=== PATIENT | female | born 1960 | race Caucasian/White ===

== ENCOUNTER 2022-01-25 10:28 | Day surgery (SDC) | payer BC ==
[2022-01-25] MEDS ORDERED: Lactated Ringers 1,000 ML IV ONE (10:49)
[2022-01-25] MEDS ORDERED: Pepcid 20 MG VIAL IV ONE ×2 (10:49→11:04)
[2022-01-25] MEDS ORDERED: KEFZOL 1 GM/50 ML PREMIX** 1 GM/50 ML IVPB IV ONE (10:49)
[2022-01-25] MEDS ORDERED: Versed 2 MG/2 ML Injection IV ONE (10:49)
[2022-01-25] MEDS ORDERED: CEFAZOLIN 2 GM-D5W BAG** 2 GM/50 ML ML IV ONE (10:50)
[2022-01-25] MEDS ORDERED: Reglan 10 MG/2 ML IV ONE (10:50)
[2022-01-25] MEDS ORDERED: Lactated Ringers 1,000 ML IV SCH (11:00)
[2022-01-25] MEDS ORDERED: CEFAZOLIN 2 GM-D5W BAG** 2 GM/50 ML ML IV SCH (11:00)
[2022-01-25] MEDS ORDERED: Reglan 10 MG/2 ML ONE (11:04)
[2022-01-25] MEDS ORDERED: Versed 2 MG/2 ML Injection ONE ×2 (11:04→13:06)
[2022-01-25] MEDS ORDERED: Marcaine Mpf 0.5% Vial 30 Ml ONE (12:30)
[2022-01-25] MEDS ORDERED: DIPRIVAN 200 MG/20 ML IV ONE (13:06)
[2022-01-25] MEDS ORDERED: Zemuron 100 MG/10 ML ONE (13:06)
[2022-01-25] MEDS ORDERED: SUBLIMAZE 250 MCG/5 ML ONE (13:06)
[2022-01-25] MEDS ORDERED: XYLOCAINE 1% HCL 20 ML MDV ONE (13:11)
[2022-01-25] MEDS ORDERED: BRIDION 200MG/2ML IV ONE (14:18)
--- NOTE | 2022-01-25 14:41 | XRAY ---
Indication: Right foot 1st MTP arthrodesis. Intraoperative fluoroscopy provided for 1 minute 18 seconds. 10 digital spot images submitted for interpretation ultimately demonstrates 1st MTP fusion with intact fixation plate/screws. Correlate with intraoperative findings/report.
--- NOTE | 2022-01-25 15:40 | OP ---
SURGERY DATE/TIME: 01/25/2022 1315 PREOPERATIVE DIAGNOSES: 1) Right foot pain. 2) Hallux abductovalgus right foot. 3) Osteoarthritis first metatarsophalangeal joint right foot. POSTOPERATIVE DIAGNOSES: 1) Right foot pain. 2) Hallux abductovalgus right foot. 3) Osteoarthritis first metatarsophalangeal joint right foot. PROCEDURE: First metatarsophalangeal joint arthrodesis. SURGEON: Yomi Lambert DPM. LINOLEUM TILE LAYER: None. ANESTHESIA: General plus a postoperative local block. See injectables for details. HEMOSTASIS: Ankle tourniquet set to 250 mm of Mercury for approximately 37 total tourniquet minutes. MATERIALS: 4-0 Monocryl, 3-0 Nylon. A 3.4 x 30 MM VPC Ivana screw as well as A.L.P.S. 0-degree metatarsophalangeal joint plate. INJECTABLES: 20 cc total of a 1:1 mixture of 1% lidocaine plain and 0.5% bupivacaine plain injected in a Mcnally block-type fashion. INDICATION FOR SURGERY: Julissa is a very pleasant 61-year-old female who was seen for complaints of pain to the bilateral lower extremity. The patient indicated that she had significant amount of pain with ambulation and shoe gear. She had made modifications to her shoe gear, selected the best athletic shoes on the market and performed physical therapy and stretching exercises to no avail. At this time the patient has tried everything from the conservative modality to alleviate the pain that she has been experiencing. At this time she wishes to proceed with surgical intervention. The patient understands the risks, benefits and complications of surgical intervention including but not limited to infection, hematoma, seroma, possibility of delayed skin healing, nonskin healing, possibility of nonbone healing and possibility of delayed bone healing, possibility of failure of hardware and need for further surgical intervention at a later date has been discussed. The patient understands all of these risks and wishes to proceed. The patient understands that there are no guarantees provided as to the outcome of the surgical intervention. Plenty of time was allowed for the patient to ask questions. At this time the patient would like to proceed with her right foot and in six weeks' time proceed with her left foot secondary to the pain that she has been experiencing to bilateral lower extremities. The patient has been instructed that so long as there are no complications we may proceed with this plan. It is with that we decided to proceed. DESCRIPTION OF PROCEDURE AND FINDINGS: The patient was brought into the OR and placed on the OR table in the supine position. At this time general anesthesia was administered until the patient was sedated. A well-padded ankle tourniquet was applied to the patient's right ankle. At this time the right lower extremity was prepped and draped in the typical sterile fashion. At this time attention was directed to the dorsal aspect of the first metatarsophalangeal joint where there was significant metatarsophalangeal joint hallux abductovalgus. At this time a linear incision was made just medial to the extensor hallucis longus tendon. This incision was deepened along the fascial plane with a combination of blunt and sharp dissection. At this time the extensor hallucis tendon was resected out of the surgical site and cleared from its soft tissue attachments until it could be gently retracted to lateral part of the incision. At this time the dorsal capsule of the metatarsophalangeal joint was dissected in a linear-type fashion elevating it from the bone. At this time the joint was disarticulated utilizing McGlamry. In the process the metatarsal head was examined and an osteochondral defect was identified that was approximately 4 mm in depth at the plantar medial aspect of the joint. The remaining joint was arthritic primarily dorsally which explains the patient's crepitation with range of motion on clinical examination. At this time a sagittal saw was utilized to remove the new eminence off of the medial aspect of the metatarsal. A K-wire was retrograded down the center of the first metatarsal head. At this time a conical reamer was utilized to remove the cartilage from the metatarsal head and then a conical reamer was then utilized to remove the cartilage from the base of the proximal phalanx. Copious amounts of sterile saline were utilized to flush the site. Joint prep was carried out utilizing a 2.0 mm drill, curettes and rongeur. Following this a K-wire was introduced from a distal medial to a proximal lateral orientation in order to secure the joint. A neutral A.L.P.S. 0-degree plate was then introduced into the surgical site and deemed to be of adequate position and quality. At this time a combination of locking and nonlocking screws were utilized to secure the plate distally and eccentric screw was engaged into the plate with minimal compression and then an interfragmentary screw measuring 3.4 x 30 mm was introduced from a distal medial to proximal lateral orientation. Following this, the eccentric screw and the interfragmentary screw were alternated to get compression through the joint. The remainder of the proximal first metatarsophalangeal screws were introduced utilizing a combination of locking screws. Following this, copious amounts of sterile saline were utilized to flush the surgical site. The extensor hallucis longus tendon and the capsule were repaired enclosing the plate. 4-0 Monocryl was then utilized to coapt the subcutaneous skin edges in a running interlocking stitch through the capsular layer and simple buried in the subcutaneous layer. Following this 3-0 Nylon was utilized to coapt the skin edges in a horizontal mattress-type fashion. An injection consisting of 20 cc total of a 1:1 mixture of 1% lidocaine plain and 0.5% bupivacaine plain injected in a Mcnally block-type fashion to the first metatarsophalangeal joint of the right foot. Following this, sterile saline soaked lap utilized to cleanse the surgical site this was then dried and the dressing consisting of Betadine, Adaptic, 4x4, Kerlix and TOMMY was applied to the patient's right foot. The patient was then reversed from anesthesia and returned to the postoperative anesthesia care unit with vital signs stable and vascular status intact. The patient handled the procedure as well as the anesthesia without significant complication. Postoperative orders as indicated in the patient's discharge chart.
[2022-01-25 15:59] VITALS: BP 139/88; PULSE 75; O2SAT 98
--- NOTE | 2022-01-25 16:23 | XRAY ---
One minute and 18 seconds of fluoroscopy was used in surgery for a right first metatarsal joint arthrodesis.
== END 2022-01-25 16:07 | disposition home or self-care (01) ==
LOC: SDC 10:28
PROVIDERS: ATTEND Podiatrist Foot & Ankle Surgery
DX: M20.11 Hallux valgus (acquired), right foot (principal); M19.071 Primary osteoarthritis, right ankle and foot; M79.671 Pain in right foot
CPT/HCPCS: 28750; 73630; 76000; C1713; C1769; J0690; J2250; J2704; J3010

== ENCOUNTER 2022-02-25 07:11 | Day surgery (SDC) | payer BC ==
[2022-02-25] MEDS ORDERED: Pepcid 20 MG VIAL IV ONE ×2 (07:45→08:04)
[2022-02-25] MEDS ORDERED: Versed 2 MG/2 ML Injection IV PRN (07:47)
[2022-02-25] MEDS ORDERED: Reglan 10 MG/2 ML IV ONE (07:47)
[2022-02-25] MEDS ORDERED: Lactated Ringers 1,000 ML IV SCH (08:00)
[2022-02-25] MEDS ORDERED: CEFAZOLIN 2 GM-D5W BAG** 2 GM/50 ML ML IV SCH (08:00)
[2022-02-25] MEDS ORDERED: Lactated Ringers 1,000 ML IV ONE ×2 (08:04→12:06)
[2022-02-25] MEDS ORDERED: Reglan 10 MG/2 ML ONE (08:04)
[2022-02-25] MEDS ORDERED: CEFAZOLIN 2 GM-D5W BAG** 2 GM/50 ML ML IV ONE (08:04)
[2022-02-25] MEDS ORDERED: Versed 2 MG/2 ML Injection ONE (08:31)
[2022-02-25] MEDS ORDERED: Xylocaine 1% Vial 30 ML PF IJ ONE (10:11)
[2022-02-25] MEDS ORDERED: Marcaine Mpf 0.5% Vial 30 Ml ONE (10:13)
[2022-02-25] MEDS ORDERED: Zofran 4 MG/2 ML VIAL ONE (10:17)
[2022-02-25] MEDS ORDERED: SUBLIMAZE 100 MCG/2 ML ONE ×2 (10:17→13:18)
[2022-02-25] MEDS ORDERED: Decadron 4 MG INJ ONE (10:17)
[2022-02-25] MEDS ORDERED: DIPRIVAN 200 MG/20 ML IV ONE (10:17)
[2022-02-25] MEDS ORDERED: Xylocaine-Mpf 2% 5 Ml Vial ONE (10:17)
--- NOTE | 2022-02-25 13:11 | XRAY ---
Indication: Left great toe bunionectomy. Intraoperative fluoroscopy provided for 5 minutes. 14 digital spot images submitted for interpretation demonstrates osteotomy distal 1st metatarsal and proximal great toe both with intact fixation screws traversing. Correlate with intraoperative findings/report.
[2022-02-25 14:16] VITALS: O2SAT 96
[2022-02-25 14:25] VITALS: BP 101/65; PULSE 86
--- NOTE | 2022-02-25 14:59 | XRAY ---
5 minutes fluoroscopy time in surgery for bunion correction of the left 1st toe.
--- NOTE | 2022-03-02 08:48 | OP ---
SURGERY DATE/TIME: 02/25/2022 1102 PREOPERATIVE DIAGNOSES: 1) Hallux abductovalgus left foot. 2) Pain left foot. 3) Increase in hallux abductus angle. POSTOPERATIVE DIAGNOSES: 1) Hallux abductovalgus left foot. 2) Pain left foot. 3) Increase in hallux abductus angle. PROCEDURES: 1) Minimal invasive bunion left foot. 2) Lateral release. 3) Junito osteotomy proximal phalanx left hallux. SURGEON: Yomi Lambert DPM. CHANGE OVER: None. ANESTHESIA: General. HEMOSTASIS: Pressure dressing. ESTIMATED BLOOD LOSS: Less than 5 cc. MATERIALS: Three - 3.5 cannulated fully threaded screws measuring 50, 46 and 30 mm respectively and 3-0 Nylon. INJECTABLES: 30 cc of 1:1 mixture of 1% lidocaine plain and 0.5% bupivacaine plain injected in a Mcnally block-type fashion. INDICATION FOR SURGERY: Julissa is a very pleasant 61-year-old female who recently underwent a first metaphalangeal joint fusion to the right foot secondary to a bunion with significant amount of arthritis. The patient wished to proceed with the left foot once she was able to bear weight to the right and has progressed without complication of the right foot at this time. The patient understands all risks, complications and benefits of the surgical intervention. Discussion in regards to choice of selection were discussed with the patient to which the patient agrees to proceeding with at this time. No guarantees were provided as to the outcome of the surgical intervention. Plenty of time was allowed for the patient to ask questions which were answered to the patients apparent satisfaction. It is with that we decided to proceed. DESCRIPTION OF PROCEDURE AND FINDINGS: The patient is brought into the OR and placed on the OR table in the supine position. At this time general anesthesia was administered until the patient was sedated. The left lower extremity was prepped and draped in the typical sterile fashion and lowered onto the surgical field. At this time attention was directed under fluoroscopic guidance throughout the entirety of the procedure driving two - 1.2 mm K-wires from the proximal medial aspect of the first metatarsal exiting out the lateral cortex in preparation for our metatarsal osteotomy and displacement. Once these two K-wires were placed, a Leida bur measuring 12 x 2 mm was utilized at the belly of the metatarsal head to carefully resect the metatarsal head with irrigation so as not to create a foaming necrosis to the bone. At this time the head was shifted laterally approximately 50% of the metatarsal and pinned utilizing two - 3.5 mm cannulated screws measuring 50 mm and 46 mm respectively. Once this was performed, a lateral release was performed of the lateral sesamoid this was performed in sequential fashion. At this time the first proximal phalanx did appear to still have some residual abduction to it. The decision was made to proceed with an Junito osteotomy which was performed at the middle of the proximal phalanx taking medial cortex out approximately 2 mm and leaving the lateral cortex intact. The hinge was kept intact while a 3.5 mm x 30 mm screw was placed from a distal lateral to proximal medial orientation this was checked under fluoroscopic guidance and deemed to be in adequate position. At this time range of motion was assessed. The bunion deformity was absent at the end of the procedure. Following this the Leida bur was then utilized to vidhi down the overhang of the first metatarsal. Copious amounts of sterile saline were utilized to flush the surgical sites. A dressing consisting of Betadine, Adaptic, 4x4, Kerlix and TOMMY was applied to the foot. The patient then was reversed from anesthesia and returned to the postoperative anesthesia care unit with vital signs stable and vascular status intact. The patient handled the anesthesia as well as the procedure without significant complication. Postoperative orders as indicated in the patient's discharge chart.
== END 2022-02-25 14:10 | disposition home or self-care (01) ==
LOC: SDC 07:11
PROVIDERS: ATTEND Podiatrist Foot & Ankle Surgery
DX: M20.12 Hallux valgus (acquired), left foot (principal); M79.672 Pain in left foot
CPT/HCPCS: 28296; 28298; 73630; 76000; C1713; J0690; J1100; J2001; J2250; J2405; J2704; J3010

== ENCOUNTER 2023-03-05 10:46 | Emergency (ER) | payer BC, OTHER ==
[2023-03-05 11:07] VITALS: PULSE 93; TEMP 98
[2023-03-05 12:09] VITALS: BP 119/74; O2SAT 99
[2023-03-05] MEDS ORDERED: NORCO 10-325 MG PO STA (12:09)
[2023-03-05] MEDS ORDERED: NORCO 10-325 MG ONE (12:10)
--- NOTE | 2023-03-05 12:12 | ERPHSYRPT ---
- History of Present Illness Time Seen by Provider: 03/05/23 11:22 Source: patient Exam Limitations: no limitations Patient Subjective Stated Complaint: pt missed a step on a ladder at work and injured her right foot/ankle Triage Nursing Assessment: Pt brought to the ER by her , alice wnl, rates pain as 7/10, right foot lateral side swollen and bruised, pulses normal, cap refill normal, denies any other injuries Physician History: 62-year-old female presented in the ER after she missed last step on the ladder and accidentally fell off with twisting right foot at work prior to arrival. Patient reports inability to have any weightbearing because of excruciating pain 7-8/10 intensity more on the anterolateral side of the foot. Has some swelling on the proximal foot as well. No numbness or tingling in the toes. No ankle pain. No injury anywhere else. Allergies/Adverse Reactions: Sulfa (Sulfonamide Antibiotics) Allergy (Mild, Verified 03/05/23 11:07) rash/ itching Home Medications: Omeprazole [Prilosec] 40 mg PO DAILY 06/19/15 [History] P-Ephed Sul/Loratadine 24Hr [Claritin-D 24Hr Tablet] 1 each PO DAILY 06/19/15 [History] Aspirin EC 81 mg [Ecotrin 81 mg] 81 mg PO DAILY 01/07/22 [History] Escitalopram Oxalate [Lexapro] 10 mg PO DAILY 01/07/22 [History] Losartan/Hydrochlorothiazide [Losartan-Hctz 100-25 mg Tab] 1 tab PO DAILY 01/07/22 [History] Metoprolol Succinate 25 mg Xl* [Toprol-Xl 25MG Tablets] 25 mg PO DAILY 01/07/22 [History] Gabapentin 600 mg PO BID 03/05/23 [History] Rosuvastatin Calcium 20 mg PO DAILY 03/05/23 [History] Hx Influenza Vaccination/Date Given: Yes Hx Pneumococcal Vaccination/Date Given: Yes Travel Risk - International Travel Have you traveled outside of the country in past 3 weeks: No - Coronavirus Screening Are you exhibiting any of the following symptoms?: No Close contact with a COVID-19 positive Pt in past 14-21 Days: No - Vaccine Status Have you recieved a Covid-19 vaccination: Yes [employer]: [employer] - Vaccination Dates Date of 2cond Vaccination (if applicable): 2020 - Review of Systems Constitutional: No Symptoms Eyes: No Symptoms Ears, Nose, & Throat: No Symptoms Respiratory: No Symptoms Cardiac: No Symptoms Genitourinary Symptoms: No Symptoms Musculoskeletal: Fall, Injury Skin: No Symptoms Neurological: No Symptoms Immunological/Allergic: No Symptoms - Past Medical History Pertinent Past Medical History: Yes Neurological History: No Pertinent History ENT History: No Pertinent History Cardiac History: High Cholesterol, Hypertension Respiratory History: Asthma, COPD Endocrine Medical History: No Pertinent History Musculoskeletal History: No Pertinent History GI Medical History: GERD History: No Pertinent History Psycho-Social History: Anxiety Female Reproductive Disorders: No Pertinent History - Past Surgical History Past Surgical History: Yes Neuro Surgical History: No Pertinent History Cardiac: No Pertinent History Respiratory: No Pertinent History Gastrointestinal: No Pertinent History Female Surgical History: Hysterectomy, Section, Tubal Ligation Other Surgical History: sinus surgery,colonoscopy. right foot. both eyes laser surgery - Social History Smoking Status: Current every day smoker How long have you smoked: 35yrs Exposure to second hand smoke: Yes Drug Use: none Patient Lives Alone: No - Nursing Vital Signs Nursing Vital Signs: Initial Vital Signs Temperature 98.0 F 03/05/23 10:59 Pulse Rate 93 H 03/05/23 10:59 Blood Pressure 102/72 03/05/23 10:59 O2 Sat by Pulse Oximetry 98 03/05/23 10:59 Pain Scale Pain Intensity 8 - Physical Exam General Appearance: no apparent distress Eyes, Ears, Nose, Throat Exam: normal ENT inspection Neck Exam: normal inspection, non-tender, supple, full range of motion Cardiovascular/Respiratory Exam: normal breath sounds, regular rate/rhythm Gastrointestinal/Abdominal Exam: non-tender, soft Back Exam: normal inspection, normal range of motion Legs Exam: bilateral leg: non-tender, normal inspection, normal range of motion, no evidence of injury Knees Exam: bilateral knee: non-tender, normal inspection, normal range of motion, no evidence of injury Ankle Exam: bilateral ankle: non-tender, normal inspection, normal range of motion, no evidence of injury Foot Exam: right foot: bone tenderness (Anterolateral foot), limited range of motion, pain, soft tissue tenderness, swelling, left foot: non-tender, normal inspection, normal range of motion, no evidence of injury Neuro/Tendon Exam: normal sensation, normal motor functions Mental Status Exam: alert, oriented x 3, cooperative Skin Exam: normal color SpO2 Interpretation: normal SpO2: 99 O2 Delivery: Room Air Ordered Tests: Active Orders 24 hr Category Date Time Status ANKLE (3 VIEWS) Stat Exams 03/05/23 11:20 Completed FOOT (MINIMUM 3 VIEWS) Stat Exams 03/05/23 11:20 Completed Medication Summary Discontinued Medications Generic Name Dose Route Start Last Admin Trade Name Zamzam PRN Reason Stop Dose Admin Hydrocodone Bitart/Acetaminophen 1 tablet 03/05/23 12:09 03/05/23 12:12 Hydrocodone/Acetamin 10-325 Mg Tablet PO 03/05/23 12:10 1 tablet ONCE STA Administration Hydrocodone Bitart/Acetaminophen Confirm 03/05/23 12:10 Hydrocodone/Acetamin 10-325 Mg Tablet Administered 03/05/23 12:11 Dose 1 tablet .ROUTE .STK-MED ONE - Progress Progress: pain not gone completely, re-examined Progress Note: 03/05/23 12:09 62-year-old is evaluated in the ER for right foot injury after she missed a step on a ladder. Patient has swelling proximal right foot. X-rays are positive for fracture of third and fourth metatarsal reviewed by me, official report is pending. Distal neurovascular intact. Placed in a posterior splint, crutches with nonweightbearing, pain medication for symptomatic relief here and to go home and outpatient podiatry follow-up. Counseled pt/family regarding: diagnosis, need for follow-up, rad results Medical Desision Making - Diagnostic Testing Diagnostic test were ordered, analyzed, and reviewed by me: Yes Radiological Interpretation: Interpreted by me, Reviewed by me - Risk of complications The pt has a mod risk of morbidity or mortality based on: Need for prescription drug management - Departure Departure Disposition: Home Clinical Impression: Foot fracture, right Condition: Stable Critical Care Time: No Referrals: SHARI PETTIT MD [Primary Care Provider] - Follow up with PCP 2 days ENDER KNAPP DPM [ACTIVE STAFF] - Follow up/PCP as directed (In 2 days) Instructions: Foot Fracture (DC) Additional Instructions: Intermittent ice application. Nonweightbearing. Pain medications as needed. Keep it elevated. Follow-up with her doctor for reevaluation early next week. Return to ER for any worsening. Prescriptions: Hydrocodone/Acetaminophen [Hydrocodone-Acetamin 5-325 mg] 1 tab PO Q6HPRN PRN 3 Days #12 tablet MDD 4 PRN Reason: Pain
--- NOTE | 2023-03-05 21:00 | XRAY ---
Indication: Pain and bruising following fall. Comparison: None 3 view right ankle obtained. No bony, articular, or soft tissue abnormalities.
--- NOTE | 2023-03-05 21:04 | XRAY ---
Indication: Pain and bruising following fall. Comparison: July 06, 2022 3 nonweightbearing views right foot demonstrates new nondisplaced distal 4th and proximal 5th metatarsal shaft fractures. Stable 1st MTP arthrodesis with intact hardware and tiny plantar heel spur. No other bony, articular, or soft tissue abnormalities.
== END 2023-03-05 12:22 | disposition home or self-care (01) ==
LOC: ED 10:46
DX: S92.331A Displaced fracture of third metatarsal bone, right foot, initial encounter for closed fracture (principal); S92.341A Displaced fracture of fourth metatarsal bone, right foot, initial encounter for closed fracture; W11.XXXA Fall on and from ladder, initial encounter; Y99.0 Civilian activity done for income or pay; E78.5 Hyperlipidemia, unspecified; I10 Essential (primary) hypertension; Z79.891 Long term (current) use of opiate analgesic; Z79.899 Other long term (current) drug therapy; Z72.0 Tobacco use
CPT/HCPCS: 73610; 73630; 99283; A9270-GY

== ENCOUNTER 2023-04-13 10:28 | Day surgery (SDC) | payer OTHER ==
[2023-04-13] MEDS: Lactated Ringers 1,000 ML IV SCH (11:40)
[2023-04-13 11:52] VITALS: RESP 18
[2023-04-13 12:02] LABS: Hematocrit 35.1 % (35-47); Hemoglobin 11.8 g/dL (12.0-16.0); Mean Cell Volume 95.1 fL (78-100); Mean Corpuscular Hgb Concent. 33.6 g/dL (32-36); Mean Platelet Volume 10.1 fL (7.5-11.0); Platelet Count 271 x10^3/uL (150-450); Red Blood Count 3.69 x10^6/uL (4.1-5.4); Red Cell Distribution Width 11.6 % (11.5-14.0); White Blood Count 11.2 x10^3/uL (4.0-10.5)
[2023-04-13] MEDS ORDERED: CEFAZOLIN 2 GM-D5W BAG** 2 GM/50 ML ML IV ONE (12:07)
[2023-04-13] MEDS: CEFAZOLIN 2 GM-D5W BAG** 2 GM/50 ML ML IV SCH (12:07)
[2023-04-13 12:17] LABS: ALBUMIN 4.4 g/dL (3.5-5.0); ANION GAP 8.5 MEQ/L (5-15); BILIRUBIN,TOTAL 0.4 mg/dL (0.2-1.3); Calcium 9.7 mg/dL (8.4-10.2); Creatinine 1 0.83 mg/dL (0.52-1.04); EST GLOMERULAR FILTRATION RATE 80.2 ML/MIN; Potassium 3.3 mmol/L (3.5-5.1); Total Protein 7.4 g/dL (6.3-8.2)
[2023-04-13] MEDS ORDERED: Marcaine Mpf 0.5% Vial 30 Ml ONE (12:30)
[2023-04-13] MEDS ORDERED: Xylocaine 1% Vial 30 ML PF IJ ONE (12:30)
[2023-04-13] MEDS ORDERED: Versed 2 MG/2 ML Injection ONE (12:39)
[2023-04-13] MEDS ORDERED: SUBLIMAZE 100 MCG/2 ML ONE (12:39)
[2023-04-13] MEDS ORDERED: DIPRIVAN 200 MG/20 ML IV ONE ×3 (12:39→13:55)
--- NOTE | 2023-04-13 14:35 | XRAY ---
Indication: Right 4th metatarsal ORIF surgery. Intraoperative fluoroscopy provided for 2 minutes 7 seconds. 8 digital spot images submitted for interpretation ultimately demonstrates fixation plate and 4 screws fixating distal 4th metatarsal fracture. Apposition/alignment similar to right foot radiograph April 05, 2023. Correlate with intraoperative findings/report.
--- NOTE | 2023-04-13 14:47 | XRAY ---
Two minutes and 7 seconds of fluoroscopy was used in surgery for a right 4th metatarsal ORIF surgery.
[2023-04-13 14:56] VITALS: O2SAT 96
[2023-04-13 14:57] VITALS: TEMP 97.3
[2023-04-13 15:10] VITALS: PULSE 76
[2023-04-13 15:12] VITALS: BP 113/73
--- NOTE | 2023-04-14 09:41 | OP ---
SURGERY DATE: 04/13/2023 1257 PREOPERATIVE DIAGNOSES: 1) Right foot pain. 2) Fourth metatarsal fracture displaced with malunion. 3) Fifth metatarsal fracture with routine healing. POSTOPERATIVE DIAGNOSES: 1) Right foot pain. 2) Fourth metatarsal fracture displaced with malunion. 3) Fifth metatarsal fracture with routine healing. PROCEDURE: Open reduction internal fixation of fourth metatarsal malunion. SURGEON: Yomi Lambert DPM. STUDENT SUCCESS ADVISOR: None. ANESTHESIA: Monitored anesthesia care with preoperative block consisting of 20 cc of a 1:1 mixture of 1% lidocaine plain and 0.5% bupivacaine plain injected in a metatarsal block-type fashion. HEMOSTASIS: Ankle tourniquet set to 250 mm of Mercury for approximately 30 total tourniquet minutes. ESTIMATED BLOOD LOSS: Minimal. MATERIALS: 4-0 Monocryl, 3-0 Nylon, Ivana straight locking plate with 2.5 x 14 cortical screw, 2.5 x 12, 14 and 16 locking screw. 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 The patient was deemed appropriate for conservative management initially. However on her return, the patient had some increasing pain underneath the fourth metatarsal head with significant plantar pressure underneath the fourth metatarsal head. On inspection of radiographs, there was a displacement of the fracture and healing of that fracture. The metatarsal head was in a plantar flexed position in the sagittal plane. Options were discussed with the patient in regards to treatment. Given that this was a Workers compensation injury, decided to have the issue fixed prior to it healing and addressing it then. At this time the patient understands all risks, complications and benefits of surgical intervention including but not limited to infection, hematoma, seroma, possibility of delayed wound healing, nonwound healing, possibility of delayed union, nonunion or malunion and possibility of failure of surgical intervention and need for further surgical intervention at a later date. Plenty of time was allowed for the patient to ask questions which were answered to her apparent satisfaction. No guarantees were provided as to the outcome. It is at this time we decided to proceed. DESCRIPTION OF PROCEDURE AND FINDINGS: The patient was brought into the OR and placed on the OR table in the supine position. At this time adequate monitored anesthesia care was administered until the patient was sedated. Under aseptic technique, a 10 cc injection consisting of a 1:1 mixture of 1% lidocaine plain and 0.5% bupivacaine plain was injected in a metatarsal block-type fashion to the fourth metatarsal of the right foot. At this time the right lower extremity was prepped and draped in the typical sterile fashion and lowered onto the surgical field. At this time an Esmarch was utilized to exsanguinate the leg and the tourniquet was inflated to 250 mm of Mercury. Careful dissection was carried down over the dorsal aspect of the fourth metatarsal making sure not to damage any neurovascular structures in the way. Any neurovascular structures that were encountered were retracted out of the field and prevented from damage. At this time, the metatarsal head was identified in plantar flexed position. The metatarsal head was then resected utilizing an osteotome and rotated into the appropriate position and dorsiflexed. Following this, a locking straight plate was utilized with a combination of locking and nonlocking screws to fix the metatarsal head in the appropriate position. Following this, this was checked under multiple views and deemed to be in an adequate position. Following this, copious amounts of sterile saline were utilized to flush the surgical site. 4-0 Monocryl was utilized for subcutaneous closure of skin edges and 3-0 Nylon was utilized in a horizontal mattress-type fashion to coapt the skin edges in everted-type fashion. Following this, a dressing consisting of Betadine, Adaptic, 4x4's, Kerlix and TOMMY were applied to the patient's right lower extremity. The patient was reversed from the anesthesia and returned to the postoperative anesthesia care unit with vital signs stable and vascular status intact. The patient handled the anesthesia as well as the procedure without significant complication. Postoperative orders as indicated in the patient's discharge chart.
== END 2023-04-13 15:15 | disposition home or self-care (01) ==
LOC: SDC 10:28
PROVIDERS: ATTEND Podiatrist Foot & Ankle Surgery
DX: S92.341A Displaced fracture of fourth metatarsal bone, right foot, initial encounter for closed fracture (principal); S92.351D Displaced fracture of fifth metatarsal bone, right foot, subsequent encounter for fracture with routine healing; M79.671 Pain in right foot
CPT/HCPCS: 36415; 73630; 76000; 80053; 85027; J0690; J2001; J2250; J2704; J3010

== ENCOUNTER 2023-12-18 12:31 | Emergency (ER) | payer BC ==
[2023-12-18 12:55] VITALS: TEMP 97.7
--- NOTE | 2023-12-18 13:08 | ERPHSYRPT ---
- History of Present Illness Time Seen by Provider: 12/18/23 12:39 Source: patient Exam Limitations: no limitations Patient Subjective Stated Complaint: C/O head injury that occurred on Monday around 1200. Patient states he was hit on the top of the head by a bucket on a t ractor while placing fence posts. Did not lose conciousness but has had a constant headache since. Triage Nursing Assessment: Patient ambulated back to ER. She is alert and or iented. No SOB. Denies dizziness or nausea. AKBAR WNL. Skin tone normal. Physician History: On December 15, the heavy bucket fell on her head . Patient says there are some headache but my family and the doctor wanted me to get the CT scan to make sure everything is okay Occurred: days ago (3) Head Injury Location: temporal, parietal Method of Injury: direct blow Loss of Consciousness: no loss of consciousness Associated Symptoms: headaches, No shortness of breath, No heartburn, No chest pain, No fever, No loss of appetite Allergies/Adverse Reactions: Sulfa (Sulfonamide Antibiotics) Allergy (Mild, Verified 12/18/23 12:44) rash/ itching Home Medications: Omeprazole [Prilosec] 40 mg PO DAILY 06/19/15 [History] P-Ephed Sul/Loratadine 24Hr [Claritin-D 24Hr Tablet] 1 each PO DAILY 0 06/19/15 [History] Aspirin EC 81 mg [Ecotrin 81 mg] 81 mg PO DAILY 01/07/22 [History] Escitalopram Oxalate [Lexapro] 10 mg PO DAILY 01/07/22 [History] Losartan/Hydrochlorothiazide [Losartan-Hctz 100-25 mg Tab] 1 tab PO DAILY 01/07/22 [History] Metoprolol Succinate 25 mg Xl* [Toprol-Xl 25MG Tablets] 25 mg PO DAILY 01/07/22 [History] Rosuvastatin Calcium 20 mg PO DAILY 03/05/23 [History] Hx Tetanus, Diphtheria Vaccination/Date Given: Yes Hx Influenza Vaccination/Date Given: Yes Hx Pneumococcal Vaccination/Date Given: Yes Immunizations Up to Date: Yes Travel Risk - International Travel Have you traveled outside of the country in past 3 weeks: No - Emerging Infectious Disease Are you exhibiting symptoms associated with any current EIDs: No - Review of Systems Constitutional: No Fever, No Chills Eyes: No Symptoms Ears, Nose, & Throat: No Symptoms Respiratory: No Cough, No Dyspnea Cardiac: No Chest Pain, No Edema, No Syncope Abdominal/Gastrointestinal: No Abdominal Pain, No Nausea, No Vomiting, No Diarrhea Genitourinary Symptoms: No Dysuria Musculoskeletal: No Back Pain, No Neck Pain Skin: No Rash Neurological: Headache, No Dizziness, No Focal Weakness, No Sensory Changes Psychological: No Symptoms Endocrine: No Symptoms All Other Systems: Reviewed and Negative - Past Medical History Pertinent Past Medical History: Yes Neurological History: Migraines ENT History: No Pertinent History Cardiac History: High Cholesterol, Hypertension Respiratory History: COPD Endocrine Medical History: No Pertinent History Musculoskeletal History: Arthritis GI Medical History: GERD History: No Pertinent History Psycho-Social History: Anxiety Female Reproductive Disorders: No Pertinent History Other Medical History: HEADACHES (CHIROPRACTOR BUT HAS NOT BEEN SINCE INJURY), B BUNION SX (2021), HYSTERECTOMY, SINUS SX, L WRIST GANGLION CYST, R FOOT FIRST TOE FUSION, SMOKER. - Past Surgical History Past Surgical History: Yes Neuro Surgical History: No Pertinent History Cardiac: No Pertinent History Respiratory: No Pertinent History Gastrointestinal: No Pertinent History Female Surgical History: Hysterectomy, Section, Tubal Ligation Other Surgical History: sinus surgery,colonoscopy, cody feet, both eyes laser surgery - Social History Smoking Status: Current every day smoker How long have you smoked: 35yrs Exposure to second hand smoke: Yes Drug Use: none Patient Lives Alone: No - Social Determinants of Health Will the patient participate in the screening: Declined to provide - Nursing Vital Signs Nursing Vital Signs: Initial Vital Signs Pulse Rate 80 12/18/23 12:43 Respiratory Rate 20 12/18/23 12:43 Blood Pressure 107/62 12/18/23 12:43 O2 Sat by Pulse Oximetry 95 12/18/23 12:43 Pain Scale Pain Intensity 5 - [place] Coma Score Best Eye Response ([place]): (4) open spontaneously Best Verbal Response ([place]): (5) oriented Best Motor Response (Cas): (6) obeys commands Cas Total: 15 - Physical Exam General Appearance: no apparent distress, alert Eye Exam: bilateral eye: PERRL, EOMI ENT Exam: airway nml Neck Exam: supple Cardiovascular/Respiratory Exam: chest non-tender, normal breath sounds, regular rate/rhythm Gastrointestinal/Abdominal Exam: soft, non tender, no distention Back Exam: normal inspection, No vertebral tenderness Extremity Exam: non-tender, normal range of motion, normal inspection Mental Status Exam: alert, oriented x 3, cooperative attendant lodging facilities Exam: normal hearing, normal speech, PERRL Coordination/Gait Exam: normal finger to nose, normal gait, normal cerebellar function, negative Romberg's sign Motor/Sensory Exam: no motor deficit, no sensory deficit, no pronator drift, negative Babinski's sign, CN II-XII intact Skin Exam: normal color, warm, dry, No rash Lymphatic Exam: No adenopathy SpO2 Interpretation: normal SpO2: 95 O2 Delivery: Room Air - Course Nursing assessment & vital signs reviewed: Yes - CT Exams Head CT Interpretation: Other (Nothing acute) Ordered Tests: Active Orders 24 hr Category Date Time Status HEAD WITHOUT CONTRAST [CT] Stat Exams 12/18/23 13:08 Completed - Progress Progress: improved, re-examined Progress Note: 12/18/23 15:09 Patient relatively asymptomatic. Exam unremarkable. CT scan shows nothing acute. Old infarct. Counseled pt/family regarding: diagnosis, need for follow-up, rad results Medical Desision Making - Risk of complications Minimal Risk: Minimal risk of morbidity - Departure Departure Disposition: Home Clinical Impression: Head contusion Qualifiers: Encounter type: initial encounter Contusion of head detail: other part of head Qualified Code(s): S00.83XA - Contusion of other part of head, initial encounter Condition: Stable Critical Care Time: No Referrals: SHARI PETTIT MD [Primary Care Provider] - Follow up/PCP as directed Additional Instructions: See PCP in 1 to 2 days. Return to the ER for any emergency or new symptoms or worsening symptoms.
--- NOTE | 2023-12-18 14:57 | XRAY ---
Indication: Head injury 2 days ago. Multiple contiguous axial images obtained through the head without contrast. Comparison: None Age-appropriate global atrophy and mild periventricular degenerative micro-ischemia bilaterally. Left basal ganglia demonstrates 1.3 x 0.5 cm focus of old infarct. No acute intracranial hemorrhage, abnormal extra-axial fluid collection, or mass effect. Fourth ventricle is midline without hydrocephalus. Bony calvarium intact. Visualized paranasal sinuses and mastoid air cells are clear. Impression: Atrophy and degenerative micro-ischemia within normal limits. 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 No acute intracranial abnormalities.
[2023-12-18 15:04] VITALS: BP 106/73; PULSE 70; RESP 24
[2023-12-18 15:11] VITALS: O2SAT 95
== END 2023-12-18 15:15 | disposition home or self-care (01) ==
LOC: ED 12:31
DX: S00.83XA Contusion of other part of head, initial encounter (principal); W20.8XXA Other cause of strike by thrown, projected or falling object, initial encounter; R51.9 Headache, unspecified; E78.5 Hyperlipidemia, unspecified; I10 Essential (primary) hypertension; Z79.899 Other long term (current) drug therapy; Z72.0 Tobacco use
CPT/HCPCS: 70450; 99283